=== PATIENT | male | born 1990 | race Hispanic/Latino ===

== ENCOUNTER 2017-12-31 06:43 | Emergency (ER) | payer MEDICAID | END 2017-12-31 08:09 | disposition left against medical advice (07) | LOC: EDH 06:43 | DX: S00.03XA Contusion of scalp, initial encounter (principal); S40.811A Abrasion of right upper arm, initial encounter; S80.211A Abrasion, right knee, initial encounter; Z72.0 Tobacco use; Y00.XXXA Assault by blunt object, initial encounter; Y93.89 Activity, other specified; Y92.89 Other specified places as the place of occurrence of the external cause; Y99.8 Other external cause status | CPT/HCPCS: 99281 ==